=== PATIENT | female | born 1960 ===

== ENCOUNTER 2023-09-27 13:38 | Inpatient (IN) | payer OTHER, MEDICAID ==
[2023-09-27 14:16] LABS: #Eosinphils 0.1 thou/uL (0.0-0.7); #Monocytes 0.4 thou/uL (0.11-0.59); #Neutrophils 2.6 thou/uL (1.40-6.50); %Basophils 0.4 % (0.0-1.0); %Eosinophils 1.3 % (0.0-10.0); %Monocytes 6.6 % (0.0-10.0); %Neutrophils 48.5 % (42.0-75.0); Hemoglobin 14.2 g/dL (12.0-16.0); Mean Corpuscular HGB CONC 32.3 g/dL (32.0-36.0); Mean Corpuscular Hemoglobin 31.8 pg (27.0-31.0); Mean Corpuscular Volume 98.4 fl (78.0-98.0); Mean Platelet Volume 11.3 fL (7.4-10.4); Platelet Count 209 10x3/uL (130-400); RBC Distribution Width 12.6 % (11.5-14.5); Red Blood Cell (RBC) Count 4.47 mill/uL (4.20-5.40); White Blood Cell (WBC) Count 5.4 10x3/uL (4.8-10.8)
[2023-09-27 14:40] LABS: ALT (SGPT) 11 U/L (8-55); AST (SGOT) 14 U/L (5-34); Albumin 4.2 g/dL (3.4-4.8); Alkaline Phosphatase 73 U/L (40-110); Anion Gap 12 mmol/L (10-20); BUN (Urea Nitrogen) 8 mg/dL (9.8-20.1); Bilirubin, Total 0.3 mg/dL (0.2-1.2); Calc. Creatinine Clearance 0 mL/min (70-130); Calcium 9.6 mg/dL (7.8-10.44); Carbon Dioxide 29 mmol/L (23-31); Chloride 105 mmol/L (98-107); Estimated GFR 80; Globulin 3.6 g/dL (2.4-3.5); Glucose 130 mg/dL (80-115); Potassium 4.2 mmol/L (3.5-5.1); Protein, Total 7.8 g/dL (5.8-8.1); Sodium 142 mmol/L (136-145)
[2023-09-27 14:43] LABS: Troponin I Less than 0.010 ng/mL (< 0.028)
[2023-09-27] MEDS ORDERED: Mag-Al 1200 mg/1200 mg/30 ML UDCUP ONE (15:02)
[2023-09-27] MEDS ORDERED: Aspirin Chewable 81 MG TAB ONE (15:02)
[2023-09-27] MEDS ORDERED: Nitroglycerin 2% Ointment 1 INCH/1 GM Packet ONE (15:35)
[2023-09-27] MEDS ORDERED: Nitroglycerin 0.4 MG TAB (25 Tab Bottle) SL PRN (17:18)
[2023-09-27] MEDS ORDERED: Ondansetron PF 4 MG/2 ML Vial IVP PRN (17:21)
[2023-09-27] MEDS ORDERED: Acetaminophen 325 MG TAB PO PRN (17:21)
[2023-09-27] MEDS ORDERED: Pantoprazole 40 MG VIAL IVP SCH (17:30)
[2023-09-27 18:13] LABS: Troponin I Less than 0.010 ng/mL (< 0.028)
[2023-09-27] MEDS: Atorvastatin Calcium 40 MG TAB PO SCH (22:49)
[2023-09-27 23:20] LABS: Troponin I Less than 0.010 ng/mL (< 0.028)
[2023-09-28 04:20] LABS: #Eosinphils 0.1 thou/uL (0.0-0.7); #Monocytes 0.4 thou/uL (0.11-0.59); #Neutrophils 1.7 thou/uL (1.40-6.50); %Basophils 0.7 % (0.0-1.0); %Eosinophils 2.2 % (0.0-10.0); %Lymphocytes 49.9 % (21.0-51.0); Hematocrit 41.1 % (36.0-47.0); Hemoglobin 13.2 g/dL (12.0-16.0); Mean Corpuscular HGB CONC 32.1 g/dL (32.0-36.0); Mean Corpuscular Hemoglobin 31.5 pg (27.0-31.0); Mean Corpuscular Volume 98.1 fl (78.0-98.0); Mean Platelet Volume 11.7 fL (7.4-10.4); Platelet Count 178 10x3/uL (130-400); RBC Distribution Width 12.5 % (11.5-14.5); Red Blood Cell (RBC) Count 4.19 mill/uL (4.20-5.40); White Blood Cell (WBC) Count 4.6 10x3/uL (4.8-10.8)
[2023-09-28 04:54] LABS: Anion Gap 13 mmol/L (10-20); BUN (Urea Nitrogen) 9 mg/dL (9.8-20.1); Calc. Creatinine Clearance 133 mL/min (70-130); Calcium 8.9 mg/dL (7.8-10.44); Carbon Dioxide 25 mmol/L (23-31); Chloride 106 mmol/L (98-107); Estimated GFR 93; Glucose 84 mg/dL (80-115); Potassium 3.9 mmol/L (3.5-5.1); Sodium 140 mmol/L (136-145)
[2023-09-28] MEDS: Aspirin 81 mg Enteric Coated Tablet PO SCH (08:59)
[2023-09-28] MEDS: Montelukast Sodium 10 mg Tablet PO SCH (09:00)
[2023-09-28] MEDS: Fluticasone Propionate Nasal Spray 16 gm Bottle NASAL SCH (09:00)
[2023-09-28] MEDS: HYDROcodone/Acetaminophen 10/325 mg Tablet PO PRN ×2 (14:20→22:06)
[2023-09-28] MEDS: Atorvastatin Calcium 40 MG TAB PO SCH (22:07)
[2023-09-29] MEDS: Fluticasone Propionate Nasal Spray 16 gm Bottle NASAL SCH (08:43)
[2023-09-29] MEDS: Montelukast Sodium 10 mg Tablet PO SCH (08:44)
[2023-09-29] MEDS: Aspirin 81 mg Enteric Coated Tablet PO SCH (08:44)
[2023-09-29] MEDS: HYDROcodone/Acetaminophen 10/325 mg Tablet PO PRN ×2 (08:57→18:06)
[2023-09-29] MEDS ORDERED: Hydrochlorothiazide 25 MG TAB PO SCH (09:00)
[2023-09-29] MEDS ORDERED: Polyethylene Glycol 3350 17 GM Packet PO PRN (18:15)
[2023-09-29] MEDS: Metoprolol Tartrate 25 MG TAB PO SCH (20:17)
[2023-09-29] MEDS: Atorvastatin Calcium 40 MG TAB PO SCH (20:17)
[2023-09-29] MEDS: Saccharomyces boulardii 250 MG CAP PO SCH (20:17)
[2023-09-30 08:33] LABS: Anion Gap 13 mmol/L (10-20); BUN (Urea Nitrogen) 10 mg/dL (9.8-20.1); Calc. Creatinine Clearance 120 mL/min (70-130); Carbon Dioxide 26 mmol/L (23-31); Chloride 103 mmol/L (98-107); Estimated GFR 82; Glucose 93 mg/dL (80-115); Potassium 3.7 mmol/L (3.5-5.1); Sodium 138 mmol/L (136-145)
[2023-09-30] MEDS: Fluticasone Propionate Nasal Spray 16 gm Bottle NASAL SCH (09:12)
[2023-09-30] MEDS: Saccharomyces boulardii 250 MG CAP PO SCH ×2 (09:13→20:23)
[2023-09-30] MEDS: Aspirin 81 mg Enteric Coated Tablet PO SCH (09:13)
[2023-09-30] MEDS: Metoprolol Tartrate 25 MG TAB PO SCH ×2 (09:13→20:23)
[2023-09-30] MEDS: Montelukast Sodium 10 mg Tablet PO SCH (09:13)
[2023-09-30] MEDS: HYDROcodone/Acetaminophen 10/325 mg Tablet PO PRN ×2 (09:20→18:09)
[2023-09-30] MEDS ORDERED: Communication Order-Pharmacy FS SCH (09:30)
[2023-09-30] MEDS: Lorazepam 0.5 MG TAB PO PRN (18:23)
[2023-09-30] MEDS: Atorvastatin Calcium 40 MG TAB PO SCH (20:23)
[2023-10-01] MEDS ORDERED: Sodium Chloride 0.9% 1,000 ML IV SCH ×2 (06:00→11:23)
[2023-10-01] MEDS: Saccharomyces boulardii 250 MG CAP PO SCH (07:31)
[2023-10-01] MEDS: Aspirin 81 mg Enteric Coated Tablet PO SCH (07:31)
[2023-10-01] MEDS: Fluticasone Propionate Nasal Spray 16 gm Bottle NASAL SCH (07:32)
[2023-10-01] MEDS: Montelukast Sodium 10 mg Tablet PO SCH (07:32)
[2023-10-01] MEDS: Metoprolol Tartrate 25 MG TAB PO SCH (07:40)
[2023-10-01] MEDS: HYDROcodone/Acetaminophen 10/325 mg Tablet PO PRN (09:02)
[2023-10-01] MEDS: Lorazepam 0.5 MG TAB PO PRN ×2 (09:02→15:36)
[2023-10-01] MEDS ORDERED: Lidocaine 1% (PF) 30 ML VIAL ONE (09:10)
[2023-10-01] MEDS ORDERED: Heparin 10,000 UNITS/ 10 ML VIAL ONE (09:10)
[2023-10-01] MEDS ORDERED: Midazolam HCl 2 mg/2 ml Vial ONE (10:29)
[2023-10-01] MEDS ORDERED: fentaNYL 50 mcg/mL 1 mL Vial ONE (10:29)
[2023-10-01] MEDS ORDERED: Protamine Sulfate 50 MG/5 ML VIAL ONE (11:05)
[2023-10-01] MEDS ORDERED: Sodium Chloride 0.9% 200 ML IV PRN (11:21)
[2023-10-01] MEDS ORDERED: Nitroglycerin 0.4 MG TAB (25 Tab Bottle) SL PRN (11:21)
[2023-10-01] MEDS ORDERED: HYDROcodone/Acetaminophen 10/325 mg Tablet PO PRN (14:39)
[2023-10-01] MEDS ORDERED: tiZANidine HCl 4 MG TAB PO PRN (14:43)
[2023-10-01 15:37] VITALS: BP 126/59; TEMP 97.8
== END 2023-10-01 19:00 | disposition home or self-care (01) | DRG 287 ==
LOC: ERS 13:38 → 2SW 17:11 → INTOOBSV 09-28 15:10 → OBSVTOIN 09-28 15:10 → 2SW 09-30 17:27
PROVIDERS: ADMIT Internal Medicine; ATTEND Internal Medicine
PROC: 4A023N7 Measurement of Cardiac Sampling and Pressure, Left Heart, Percutaneous Approach (ICD-10-PCS; principal; 2023-10-01)
PROC: B2111ZZ Fluoroscopy of Multiple Coronary Arteries using Low Osmolar Contrast (ICD-10-PCS; 2023-10-01)
PROC: B2151ZZ Fluoroscopy of Left Heart using Low Osmolar Contrast (ICD-10-PCS; 2023-10-01)
DX: R07.89 Other chest pain (principal); G43.909 Migraine, unspecified, not intractable, without status migrainosus; S29.012A Strain of muscle and tendon of back wall of thorax, initial encounter; Z88.8 Allergy status to other drugs, medicaments and biological substances; Z90.710 Acquired absence of both cervix and uterus; Z98.890 Other specified postprocedural states; F41.9 Anxiety disorder, unspecified; I10 Essential (primary) hypertension; Z79.899 Other long term (current) drug therapy; Z79.82 Long term (current) use of aspirin; Z82.49 Family history of ischemic heart disease and other diseases of the circulatory system; F17.210 Nicotine dependence, cigarettes, uncomplicated
CPT/HCPCS: 36415; 71045; 78452; 80048; 80053; 80061; 84484; 85025; 85347; 93005; 93017; 93458; 96372; 96374; 99152; 99153; A9502; C1769; C9113; G0378; J0153; J1644; J1650; J2001; J2250; J2720; J3010; J7050